=== PATIENT | male | born 1960 | race Caucasian/White ===

== ENCOUNTER 2017-01-28 10:28 | Outpatient (CLI) | payer OTHER ==
[2017-01-28] MEDS ORDERED: IOTHALAMATE MEGLUMINE 50 ML VIAL IVP ONE ×2 (12:10)
[2017-01-28] MEDS ORDERED: BUFFERED LIDOCAINE 10 ML SYRINGE IU ONE ×2 (12:10)
[2017-01-28] MEDS ORDERED: LIDOCAINE 1% 50 ML MDV SUBQ ONE ×2 (12:10)
--- NOTE | 2017-01-28 16:36 | CT Report ---
EXAM: LEFT SHOULDER CT ARTHROGRAM WITH CONTRAST EXAM DATE: 01/28/2017 12:18 PM. CLINICAL HISTORY: Primary osteoarthritis of left shoulder. COMPARISON: None. TECHNIQUE: Thin-section axial images were acquired of the shoulder after an arthrographic injection d ictated under a separate exam. Post-processing: Oblique coronal and sagittal reformats. Other: None. In accordance with CT protocol optimization, one or more of the following dose reduction techniques w ere utilized for this exam: automated exposure control, adjustment of mA and/or KV based on patient s ize, or use of iterative reconstructive technique. FINDINGS: Rotator cuff: Previous rotator cuff repair surgery. There is thinning of the supraspinatus tendon. Il l-defined 6 mm area of low grade articular surface tear of the supraspinatus at the level of the acro mioclavicular joint. There is a tiny collection of contrast medial to the anterior acromion consisten t with the presence of a tiny full-thickness defect within the supraspinatus. However, a contrast-rae led tear is not demonstrated. No additional fluid within the subacromial/subdeltoid bursa. Mild supra spinatus atrophy. Remaining rotator cuff muscles appear normal without fatty atrophy. Long head biceps tendon: Grossly intact. Labrum: No contrast-filling labral tear demonstrated. Bones and articular surfaces: Mild cartilage thinning in the glenohumeral joint. Small associated mar ginal osteophyte formation. There is some widening of the AC joint space. Potentially previous acromi oplasty and distal clavicle resection. IMPRESSION: 1. Previous rotator cuff repair with prominent thinning of the supraspinatus tendon. 2. Small focus of partial-thickness articular surface tear of the supraspinatus. 3. Small 6 mm focus of contrast near the anterior margin of the acromioclavicular articulation sugges ting presence of at least a tiny full-thickness supraspinatus defect although a discrete contrast rae ling defect is not seen. Otherwise all the injected contrast remains within the joint space, not seen within the subacromial/subdeltoid bursa. 4. Mild glenohumeral osteoarthritis. [facility] MUSCULOSKELETAL RADIOLOGY SECTION Referring Provider Line: [phone] SITE ID: [id number]
--- NOTE | 2017-01-29 06:21 | XRAY Report ---
FLUOROSCOPICALLY GUIDED LEFT SHOULDER INJECTION FOR CT ARTHROGRAM: 01/28/2017 CLINICAL INDICATION: Osteoarthritis, previous surgery. FINDINGS: Following obtaining informed consent, the patient's left shoulder was prepped and draped i n the usual sterile fashion. The skin and soft tissues were anesthetized with lidocaine. A spinal nee dle was inserted into the glenohumeral joint space, and following confirmation of needle positioning, a combination of Iodinated contrast and lidocaine was injected intraarticularly. The patient tolerat ed the procedure well. No immediate complications. Spot image reveals no evidence of contrast extrava sation into the subdeltoid bursa. A small amount of contrast was extravasated into the anterior soft tissues during needle placement. IMPRESSION: SUCCESSFUL LEFT SHOULDER INJECTION FOR CT ARTHROGRAM. FLUOROSCOPY TIME: 1 MINUTE 10 SECONDS; 1 SPOT IMAGE OBTAINED. JOB #: [id number] EXT JOB #:[id number]
== END 2017-01-28 10:29 | disposition home or self-care (01) ==
LOC: DI 10:28
PROVIDERS: ATTEND Orthopaedic Surgery
DX: M19.012 Primary osteoarthritis, left shoulder (principal); M75.102 Unspecified rotator cuff tear or rupture of left shoulder, not specified as traumatic
CPT/HCPCS: 73201; 77002; Q9961